=== PATIENT | female | born 1990 | race Caucasian/White ===

== ENCOUNTER 2024-01-15 23:33 | Emergency (ER) | payer OTHER, SELFPAY ==
[2024-01-15 23:35] VITALS: BP 125/91
[2024-01-15 23:55] LABS: % Basophils 1.2 % (0-2); % Immature Granulocytes 0.1 % (0-0.5); % Lymphocytes 42.7 % (20.5-51.1); % Monocytes 7.3 % (1.7-9.3); % Neutrophils 46.7 % (42.2-75.2); Absolute Basophils 0.1 10^3/uL (0-0.2); Absolute Eosinophils 0.2 10^3/uL (0-0.7); Absolute Lymphocytes 3.2 10^3/uL (1.2-3.4); Absolute Monocytes 0.6 10^3/uL (0.1-0.6); Absolute Neutrophils 3.5 10^3/uL (1.4-6.5); Hematocrit 35.9 % (37.0-47.0); Hemoglobin 11.6 g/dL (12.0-16.0); Mean Corp Hgb Conc. 32.3 g/dL (33.0-37.0); Mean Corpuscular Hgb 26.6 pg (27.0-31.0); Mean Corpuscular Volume 82.3 fL (81.0-99.0); Mean Platelet Volume 9.8 fL (7.4-10.4); Nucleated Red Blood Cells % 0 %; Platelet Count 330 10^3/uL (130-400); Red Blood Cell Count 4.36 10^6/uL (4.20-5.40); White Blood Cell Count 7.6 10^3/uL (4.8-10.8)
[2024-01-16 00:06] LABS: HCG, Serum Qualitative Screen Negative
[2024-01-16 00:14] LABS: ALT (SGPT) 12 U/L (0-35); AST (SGOT) 20 U/L (14-36); Albumin 4.7 g/dl (3.5-5.0); Alkaline Phosphatase 42 U/L (38-126); Blood Urea Nitrogen 10 mg/dl (7-17); Calcium 9.9 mg/dl (8.4-10.2); Carbon Dioxide 22 mmol/L (22-30); Chloride 106 mmol/L (98-107); Glucose 103 mg/dl (70-99); Lipase 70 U/L (23-300); Potassium 4.1 mmol/L (3.5-5.1); Sodium 135 mmol/L (135-145); Total Bilirubin 0.8 mg/dl (0.2-1.3); Total Protein 7.4 g/dl (6.3-8.2); eGFR > 60.00
--- NOTE | 2024-01-16 01:48 | ED.GENMED ---
History of Present Illness
<LEIGH ANN Escobar - Last Filed: 01/16/24 01:55>
General
Chief Complaint: Abdominal Pain
Source: patient
Exam Limitations: none
Time Seen by Provider: 01/16/24 01:31
Nursing documentation reviewed up to this point in time: agreed with
Travel History
Have you had any contact with someone who has COVID-19?: No
Do you have any symptoms of coronavirus? Fever > 100 degrees, chills, cough, shortness of breath, sore throat, loss of taste or smell, muscle aches, or headache?: No
History of Present Illness
History of Present Illness:
patient is a 33 y/o female presenting with abdominal pain x 3 hours. Patient states the pain started in her RUQ but is now in her epigastric region. Patient states the pain comes and goes and is a sharp pain that radiates to her right arm and
shoulder. patient states her pain has decreased since being in the ED, patient states it started at a 9/10 and now is a 5/10. Patient states she is nauseous when the pain spikes but denies being currently nauseous. Patient denies any episodes of
vomiting. Patient admits to mild difficulty with urination during the painful episodes. patient denies D/C/V, SOB, ARRIETA, CP, fever, chills. Patient denies any change in diet and admits last time she ate was 3pm. Patient denies any recent illness or
sick contacts. patient denies any recent travel. Patient denies any alcohol or tobacco in last 48 hrs.
Review of Systems
<LEIGH ANN Escobar - Last Filed: 01/16/24 01:55>
Review of Systems
All Other Systems: Not applicable
Constitutional: Reports no symptoms
EENT: Reports no symptoms
Respiratory: Reports no symptoms
Cardiac: Reports no symptoms
ABD/GI: Reports abdominal pain (RUQ and epigastric ) and nausea
: Reports difficulty voiding
Musculoskeletal: Reports no symptoms
Skin: Reports no symptoms
Neurological: Reports no symptoms
Endocrine: Reports no symptoms
Hematologic/Lymphatic: Reports no symptoms
Psychiatric: Reports no symptoms
Phy Exam
<LEIGH ANN Escobar - Last Filed: 01/16/24 01:55>
General Physical Exam
General Presentation: well appearing and no apparent distress
General Skin: warm and dry
General Habitus: normal
General Mental: alert
General Hydration: appears well hydrated
ENT Exam
ENT Exam: EOMI, pharynx normal, neck supple and normocephalic
Eye Exam
Eye Exam: PERRL, cornea clear and conjunctiva normal
Cardiovascular Exam
Cardiovascular Exam: regular rate/rhythm, no edema, no murmur and normal peripheral pulses
Pulmonary Exam
Pulmonary Exam: lungs clear, no respiratory distress, no rales, no crackles, no rhonchi, no stridor, no wheezing and no cough
Gastrointestinal Exam
Gastrointestinal Exam: normal bowel sounds, no cva tenderness and tender (epigastric tenderness)
Palpation: right upper quadrant: Minimal tenderness and generalized: Moderate tenderness (epigastric region)
Neurological Exam
Neurological Exam: alert, oriented x3, no motor deficits and speech normal
Musculoskeletal Exam
Musculoskeletal Exam: full ROM and no edema
Skin Exam
Skin Exam: normal color, warm/dry, no rash and no petechia
Psychiatric Exam
Psychiatric Exam: normal mood/affect
Course
<LEIGH ANN Escobar - Last Filed: 01/16/24 01:55>
Orders/Labs/Results
Orders:
Orders
01/15/24 23:38
IV Insert/Care/Rem.- Treatment PRN
01/15/24 23:42
Complete Blood Count/With Diff Urgent
Comprehensive Metabolic Panel Urgent
HCG, Serum Qualitative Screen Urgent
Comment: ADD ON
Lipase Urgent
01/15/24 23:44
Add On- LAB Urgent
Tests Added?: hcg-qual
01/16/24 02:12
Urinalysis Reflex To Culture Urgent
Date Specimen was Collected: 01/16/24
Time Specimen was Collected: 02:11
01/16/24 02:50
US Abdomen Complete/Upper Urgent
Comment:
Reason For Exam: RUQ ab pain
Abnormal Lab Results
01/15/24 01/16/24
23:42 02:12
Hgb 11.6 L g/dL
(12.0-16.0)
Hct 35.9 L %
(37.0-47.0)
MCH 26.6 L pg
(27.0-31.0)
MCHC 32.3 L g/dL
(33.0-37.0)
RDW 15.0 H %
(11.5-14.5)
Glucose 103 H mg/dl
(70-99)
Urine Ketones 1+ A
(Negative)
01/15/24 23:42
01/15/24 23:42
Vital Signs
Initial and Last Documented VS:
Initial Vital Signs
Temp Pulse Resp BP Pulse Ox
98.6 F 81 19 125/91 98
01/15/24 23:35 01/15/24 23:35 01/15/24 23:35 01/15/24 23:35 01/15/24 23:35
Last Documented Vital Signs
Temp Pulse Resp BP Pulse Ox
98.6 F 81 19 125/91 98
01/15/24 23:35 01/15/24 23:35 01/15/24 23:35 01/15/24 23:35 01/15/24 23:35
Jorgelt;Zack Velasquez, DO - Last Filed: 01/16/24 04:23>
Orders/Labs/Results
Orders:
Orders
01/15/24 23:38
IV Insert/Care/Rem.- Treatment PRN
01/15/24 23:42
Complete Blood Count/With Diff Urgent
Comprehensive Metabolic Panel Urgent
HCG, Serum Qualitative Screen Urgent
Comment: ADD ON
Lipase Urgent
01/15/24 23:44
Add On- LAB Urgent
Tests Added?: hcg-qual
01/16/24 02:12
Urinalysis Reflex To Culture Urgent
Date Specimen was Collected: 01/16/24
Time Specimen was Collected: 02:11
01/16/24 02:50
US Abdomen Complete/Upper Urgent
Comment:
Reason For Exam: RUQ ab pain
Abnormal Lab Results
01/15/24 01/16/24
23:42 02:12
Hgb 11.6 L g/dL
(12.0-16.0)
Hct 35.9 L %
(37.0-47.0)
MCH 26.6 L pg
(27.0-31.0)
MCHC 32.3 L g/dL
(33.0-37.0)
RDW 15.0 H %
(11.5-14.5)
Glucose 103 H mg/dl
(70-99)
Urine Ketones 1+ A
(Negative)
01/15/24 23:42
01/15/24 23:42
Vital Signs
Initial and Last Documented VS:
Initial Vital Signs
Temp Pulse Resp BP Pulse Ox
98.6 F 81 19 125/91 98
01/15/24 23:35 01/15/24 23:35 01/15/24 23:35 01/15/24 23:35 01/15/24 23:35
Last Documented Vital Signs
Temp Pulse Resp BP Pulse Ox
98.6 F 81 19 125/91 98
01/15/24 23:35 01/15/24 23:35 01/15/24 23:35 01/15/24 23:35 01/15/24 23:35
<LEIGH ANN Escobar - Last Filed: 01/16/24 01:55>
MDM/Problems Addressed
Differential Diagnosis Includes:
cholecystitis
nephrolithiasis
pancreatitis
MDM/Problems Addressed:
abdominal pain
<LEIGH ANN Escobar - Last Filed: 01/16/24 01:55>
*Critical Care Note
Total Time (30-74mins, 75-104mins- exclusive of procedures): Not Applicable
<Zack Velasquez DO - Last Filed: 01/16/24 04:23>
Update Note
Update Note:
ABDOMINAL ULTRASOUND
IMPRESSION
5 mm nonmobile nonshadowing either sludge ball or polyp towards the neck region. No shadowing gallstones . No sonographic Eaton's sign, wall thickening, pericholecystic fluid, or other signs of cholecystitis. Common bile duct is unremarkable.
Remainder of the visualized upper abdomen is unremarkable.
Case faxed/finalized at 4:13 AM eastern time . If there are any questions please contact me at [phone]
ED Attending Note
<LEIGH ANN Escobar - Last Filed: 01/16/24 01:55>
-
Portions of this chart may have been created with voice recognition software.� Occasional wrong word or��sound alike� substitutions may have occurred due to the inherent limitations of voice recognition software.
<Zack Velasquez DO - Last Filed: 01/16/24 04:23>
ED Attending Note
Patient seen and examined by attending physician: Yes
I performed the substantive portion of visit, reviewed & personally made and approve the management plan that is documented in note by myself or JESSICA.: Yes
ED Attending Note:
Pleasant 33-year-old female presents with right upper quadrant abdominal pain has been present for the last 3 hours prior to arrival. She states that she does have a known gallstone and this feels similar. She states that the pain initially was 9
out of 10 and now it is nonexistent. She did have an ultrasound. During the exam she had mild tenderness when the ultrasound probe was in the right upper quadrant. Denies fever, chills, nausea or vomiting. Denies excessive alcohol. Patient was
seen in conjunction with the PA student. I have reviewed and agree with the history and treatment plan presented. On my independent physical exam, patient is awake, alert, and oriented x3, minimal acute distress heart is regular rate and rhythm.
Lungs are clear to auscultation bilaterally without wheezes rales or rhonchi present. Abdomen soft and nontender with the exception of right upper quadrant with mild tenderness to superficial and deep palpation. Negative Eaton sign. Negative
McBurney's point tenderness. Moves all 4 extremities. Skin is warm and dry.
Patient to follow-up with surgery.
Discharge Plan
Departure
Patient Disposition: Home (Routine Discharge)
Date of Disposition: 01/16/24
Time of Disposition: 04:22
Patient with high blood pressure during this ER visit?: Yes
Condition: Good
Discharge Problem:
Biliary colic
Instructions: Gallstones (DC), BLOOD PRESSURE
Referrals:
César Wall MD [Active] - As needed
Manpreet Amaya MD [Family Provider] -
Activity Restrictions/Additional Instructions:
It was a pleasure meeting you and taking part in your care. We hope for your continued healing and wellness.
Please read discharge instructions in their entirety. However, they are for general education and may not describe your exact diagnosis at discharge. Information on your ER visit and medical conditions were discussed with you along with appropriate
follow up information...
If indicated, please take your medications as instructed and indicated on discharge paperwork.
Please schedule a follow up appointment as directed. Call to schedule an appointment
Please return to the emergency department with ANY change in, persisting, or worsening of symptoms. If any of your symptoms do not improve, or persist, or become more severe within 6-12 hours, please return to the emergency department for further
care.
Please return to the emergency department if you develop a headache, neck pain/stiffness, fever greater than 100.4F, chest pain, shortness of breath, persistent nausea, vomiting, slurred speech, difficulty walking, numbness/tingling, weakness, signs
of infection or any other symptoms that are worrisome to you.
If you have any questions or concerns please do not hesitate to call the Hospital at or E-mail me directly at [email or web address]
Interventions
Interventions:
*Risk Screen - Suicide Last Done: 01/15/24 23:35
*General Assessment Last Done: 01/15/24 23:35
*Neglect/Abuse Screening Last Done: 01/15/24 23:35
ED- Fall Risk Assessment Last Done: 01/16/24 01:20
*ED COVID-19 Vaccine History Last Done: 01/15/24 23:35
KV-Rdsnxy-Qafdcagslg Assessment Last Done: 01/16/24 01:20
Discharge Date and Time
Print Language: ALBANIAN
[2024-01-16 02:20] LABS: Urine Albumin Negative (Neg - Trace); Urine Bilirubin Negative (Negative); Urine Character Clear (Clear); Urine Color Yellow; Urine Glucose Negative (Negative); Urine Ketone 1+ (Negative); Urine Leukocyte Negative (Negative); Urine Nitrite Negative (Negative); Urine Occult Blood Negative (Negative); Urine Urobilinogen Negative (Neg - 1+)
[2024-01-16 04:35] VITALS: BP 122/78
== END 2024-01-16 04:39 | disposition home or self-care (01) ==
LOC: EMR 23:33
PROVIDERS: EMERGENCY PHYSICIAN Student in an Organized Health Care Education/Training Program; FAMILY PHYSICIAN Family Medicine
DX: K80.50 Calculus of bile duct without cholangitis or cholecystitis without obstruction (principal)
CPT/HCPCS: 99284; 76700; 80053; 81003; 83690; 84703; 85025

== ENCOUNTER 2024-12-10 08:21 | Emergency (ER) | payer OTHER, SELFPAY ==
[2024-12-10 08:23] VITALS: BP 123/86
[2024-12-10 08:32] VITALS: BMI 21.7
--- NOTE | 2024-12-10 08:40 | EDRN ---
Per ER provider- 1 to 1 is not needed. Pt has NO Active suicide thoughts- just having some obsessive thoughts.
--- NOTE | 2024-12-10 08:42 | ED.GENMED ---
History of Present Illness
General
Chief Complaint: Crisis Evaluation
Source: patient and spouse
Exam Limitations: none
Time Seen by Provider: 12/10/24 08:28
Nursing documentation reviewed up to this point in time: agreed with
History of Present Illness
History of Present Illness:
34-year-old female presenting to the emergency department today with concerns of her mental health. She claims that she has been having obsessive thoughts and has felt very anxious over the past few years but worsening over the past month or 2.
Was previously treated for obsessive thoughts and anxiety in [facility] and was treated with venlafaxine. That seemed to have some benefit but she stopped this medication 2 months ago. She denies any thoughts of harming herself currently she has had
fleeting thoughts of harming himself in the past but not within the last year. Has no thoughts of harming self currently and has never attempted to harm herself in the past. She is here with her who she is very close with.
Review of Systems
Review of Systems
Allergies reviewed?: Yes
All Other Systems: ROS reviewed and negative except as documented in HPI and ROS
Phy Exam
Physical Exam
Physical Exam:
GENERAL: Alert , in no apparent distress
EYE: pupils equal and reactive
NECK: Supple, no significant adenopathy.
ENT: o/p clr, mmm.
CARDIAC: Regular rate and rhythm .
LUNGS: Clear breath sounds bilaterally, no acute respiratory distress, no wheezes/rales/rhonchi
ABDOMEN: Soft, without focal tenderness, no r/g, no cvat
NEUROLOGICAL: Alert and oriented, no focal neuro deficits
SKIN: Warm and dry, skin intact.
MUSCULOSKELETAL: No edema, well perfused.
PSYCH: Normal and appropriate interaction.
Course
Orders/Labs/Results
Orders:
Orders
12/10/24 08:27
Crisis Consult Urgent
Reason for Consult: depression
Vital Signs
Initial and Last Documented VS:
Initial Vital Signs
Temp Pulse Resp BP Pulse Ox
98.7 F 92 18 123/86 100
12/10/24 08:23 12/10/24 08:23 12/10/24 08:23 12/10/24 08:23 12/10/24 08:23
Last Documented Vital Signs
Temp Pulse Resp BP Pulse Ox
98.7 F 92 18 123/86 100
12/10/24 08:23 12/10/24 08:23 12/10/24 08:23 12/10/24 08:23 12/10/24 08:23
MDM/Problems Addressed
MDM/Problems Addressed:
34-year-old female presenting to the emergency department today with concerns of her mental health. Previously treated in [facility] for obsessive thoughts and anxiety. Recently discontinued venlafaxine due to lack of follow-up. She is seeking
follow-up. She denies any current suicidal thoughts no attempts in the past. No thoughts of harming anyone else. She is welcome. Does not meet any 302 criteria. Patient seen by crisis given resources otherwise stable for outpatient management.
Return precautions given.
*Critical Care Note
Total Time (30-74mins, 75-104mins- exclusive of procedures): Not Applicable
ED Attending Note
-
Portions of this chart may have been created with voice recognition software.� Occasional wrong word or��sound alike� substitutions may have occurred due to the inherent limitations of voice recognition software.
Discharge Plan
Departure
Patient Disposition: Home (Routine Discharge)
Date of Disposition: 12/10/24
Time of Disposition: 08:44
Patient with high blood pressure during this ER visit?: No
Condition: Good
Covid-19: Not Applicable
Discharge Problem:
Obsessional thoughts
Instructions: Anxiety, Adult (DC)
Activity Restrictions/Additional Instructions:
You came to the emergency department today with concerns of obsessive thoughts and anxiety. Here you were given resources. Please follow closely as an outpatient. Return for any worsening, new or concerning symptoms.
Interventions
Interventions:
*Risk Screen - Suicide Last Done: 12/10/24 08:40
*General Assessment Last Done: 12/10/24 08:23
*Neglect/Abuse Screening Last Done: 12/10/24 08:23
*ED COVID-19 Vaccine History Last Done: 12/10/24 08:32
*Nursing Disposition Last Done: 12/10/24 09:18
ED-Psychological Assessment Last Done: 12/10/24 08:33
Discharge Date and Time
Discharge Date/Time: 12/10/24 09:20
Print Language: KOREAN
== END 2024-12-10 09:20 | disposition home or self-care (01) ==
LOC: EMR 08:21
PROVIDERS: EMERGENCY PHYSICIAN Emergency Medicine
DX: F42.8 Other obsessive-compulsive disorder (principal); F41.9 Anxiety disorder, unspecified
CPT/HCPCS: 99283